=== PATIENT | male | born 1955 | race Caucasian/White ===

== ENCOUNTER → 2020-10-10 | Outpatient (CLI) | payer MEDICARE, BC ==
--- NOTE | 2020-10-10 15:17 | US ---
EXAMINATION TYPE: US kidneys/renal and bladder DATE OF EXAM: 10/10/2020 COMPARISON: NONE CLINICAL HISTORY: R31.9 hematuria. trace hematuria, stones 30 years ago, no symptoms now EXAM MEASUREMENTS: Right Kidney: 12.1 x 5.7 x 6.8 cm Left Kidney: 12.3 x 5.4 x 7.1 cm Right Kidney: No hydronephrosis or masses seen Left Kidney: No hydronephrosis or masses seen Bladder: wnl IMPRESSION: 1. Normal renal ultrasound
== END | disposition home or self-care (01) ==
LOC: RADUSWWP 14:07
PROVIDERS: ATTEND Urology
DX: R31.9 Hematuria, unspecified (principal)
CPT/HCPCS: 76770

== ENCOUNTER 2023-06-29 19:44 | Outpatient (CLI) | payer MEDICARE, BC | END 2023-06-30 05:40 | disposition home or self-care (01) | LOC: 3 N SLEEP 19:44 | PROVIDERS: ATTEND Internal Medicine Critical Care Medicine | DX: G47.33 Obstructive sleep apnea (adult) (pediatric) (principal) | CPT/HCPCS: 95811 ==